=== PATIENT | male | born 1980 | race Asian ===

== ENCOUNTER 2016-04-15 10:11 | Emergency (ER) | payer BC ==
[~2016-04-15] VITALS: Ht 167.6 cm; Wt 80.7 kg
[2016-04-15] MEDS ORDERED: METOCLOPRAMIDE HCL 10 MG/2 ML VIAL IV ONE (10:30)
[2016-04-15] MEDS ORDERED: IV NS 0.9% 1,000 ML BAG IV ONE (10:30)
[2016-04-15] MEDS ORDERED: MECLIZINE HCL 12.5 MG TABLET PO ONE (10:30)
[2016-04-15] MEDS ORDERED: IV SET PRIMARY 1 EA INFUS.SET MC ONE (10:36)
[2016-04-15] MEDS ORDERED: METOCLOPRAMIDE HCL 10 MG/2 ML VIAL ONE (10:36)
[2016-04-15] MEDS ORDERED: MECLIZINE HCL 25 MG TABLET ONE (10:36)
[2016-04-15] MEDS ORDERED: IV NS 0.9% 1,000 ML ONE (10:36)
[2016-04-15 10:56] LABS: BASOPHILS % (AUTO) 0.2 % (0.0-2.0); DIFF TOTAL % 100 %; EOSINOPHILS # (AUTO) 0.1 /CMM (0.0-0.7); EOSINOPHILS % (AUTO) 0.8 % (0.0-6.0); HEMATOCRIT 47 % (39-51); LYMPHOCYTES # (AUTO) 0.6 /CMM (0.8-4.8); LYMPHOCYTES % (AUTO) 6.6 % (20.0-44.0); MEAN CORPUSCULAR HEMOGLOBIN 29 PG (26.0-33.0); MEAN CORPUSCULAR HGB CONC 34 g/dl (31.0-36.0); MEAN CORPUSCULAR VOLUME 85 fL (80-96); MONOCYTES # (AUTO) 0.7 /CMM (0.1-1.30); MONOCYTES % (AUTO) 7.4 % (2.0-12.0); NEUTROPHILS # (AUTO) 7.7 /CMM (1.8-8.9); PLATELET COUNT (AUTO) 233 /CMM (150-450); RED BLOOD CELL COUNT(AUTO) 5.59 MIL/uL (4.5-6.0)
[2016-04-15 11:05] LABS: CALCIUM, SERUM 8.9 mg/dL (8.5-10.1); CREATININE 1.1 mg/dL (0.6-1.3); POTASSIUM 3.5 mmol/L (3.5-5.1)
[2016-04-15 12:27] VITALS: BP 125/82
== END 2016-04-15 12:28 | disposition home or self-care (01) ==
LOC: ER 10:18
DX: R42 Dizziness and giddiness (principal); R11.2 Nausea with vomiting, unspecified; R51 Headache
CPT/HCPCS: 36415; 80048; 85025; 96361; 96374; 99284; A4606; J2765; J7030; J8597; Z7610

== ENCOUNTER 2016-05-13 08:17 | Outpatient (CLI) | payer BC, OTHER ==
[2016-05-13 08:48] LABS: BASOPHILS % (AUTO) 0.6 % (0.0-2.0); DIFF TOTAL % 100 %; EOSINOPHILS # (AUTO) 0.1 /CMM (0.0-0.7); EOSINOPHILS % (AUTO) 1.2 % (0.0-6.0); HEMATOCRIT 50 % (39-51); HEMOGLOBIN 16.9 g/dL (13.5-17.5); LYMPHOCYTES # (AUTO) 2.2 /CMM (0.8-4.8); LYMPHOCYTES % (AUTO) 26.4 % (20.0-44.0); MEAN CORPUSCULAR HEMOGLOBIN 29 PG (26.0-33.0); MEAN CORPUSCULAR HGB CONC 34 g/dl (31.0-36.0); MEAN CORPUSCULAR VOLUME 85 fL (80-96); MONOCYTES # (AUTO) 0.5 /CMM (0.1-1.30); NEUTROPHILS # (AUTO) 5.4 /CMM (1.8-8.9); NEUTROPHILS % (AUTO) 65.8 % (43.0-81.0); PLATELET COUNT (AUTO) 277 /CMM (150-450); WHITE BLOOD COUNT (AUTO) 8.3 K/uL (4.3-11.0)
[2016-05-13 08:52] LABS: KETONES,URINE NEGATIVE (NEGATIVE); LEUKOCYTE ESTERASE ,URINE NEGATIVE (NEGATIVE); PH,URINE 7.5 (5.0-8.0)
[2016-05-13 09:26] LABS: ADD UA MICROSCOPIC YES
[2016-05-13 09:36] LABS: ADD URINE CULTURE NO; RBC,URINE 0-2 /HPF (0-2); WBC,URINE 0-2 /HPF (0-3)
[2016-05-13 10:51] LABS: CALCIUM, SERUM 9.4 mg/dL (8.5-10.1); POTASSIUM 3.6 mmol/L (3.5-5.1)
[2016-05-13 10:52] LABS: ALBUMIN 4.5 g/dL (3.4-5.0); BILIRUBIN,TOTAL 0.7 mg/dL (0.2-1.0); URIC ACID 6.8 mg/dL (2.6-7.2)
[2016-05-13 10:53] LABS: TOTAL PROTEIN, SERUM 8.3 g/dL (6.4-8.2)
[2016-05-13 10:54] LABS: THYROID STIMULATING HORMONE 1.175 uIU/mL (0.358-3.74)
== END 2016-05-13 23:59 | disposition home or self-care (01) ==
LOC: LAB 08:17
PROVIDERS: ATTEND Legal Medicine
DX: Z00.00 Encounter for general adult medical examination without abnormal findings (principal)
CPT/HCPCS: 36415; 80053-TC; 80061-TC; 81000-TC; 84443-TC; 84550-TC; 85025-TC

== ENCOUNTER 2016-05-15 14:41 | Outpatient (CLI) | payer BC, OTHER | END 2016-05-15 23:59 | disposition home or self-care (01) | LOC: RAD 14:41 | PROVIDERS: ATTEND Nurse Practitioner Acute Care | DX: S82.002A Unspecified fracture of left patella, initial encounter for closed fracture (principal); X58.XXXA Exposure to other specified factors, initial encounter; Y93.89 Activity, other specified; Y92.89 Other specified places as the place of occurrence of the external cause; Y99.8 Other external cause status | CPT/HCPCS: 73564-TC ==

== ENCOUNTER 2016-05-22 08:12 | Outpatient (CLI) | payer BC, OTHER | END 2016-05-22 23:59 | disposition home or self-care (01) | LOC: MRI 08:12 | PROVIDERS: ATTEND Legal Medicine | DX: S69.82XA Other specified injuries of left wrist, hand and finger(s), initial encounter (principal); X58.XXXA Exposure to other specified factors, initial encounter; Y93.89 Activity, other specified; Y92.89 Other specified places as the place of occurrence of the external cause; Y99.8 Other external cause status | CPT/HCPCS: 73221 ==

== ENCOUNTER 2016-06-24 09:54 | Outpatient (CLI) | payer BC, OTHER ==
[2016-06-24 10:59] LABS: BASOPHILS # (AUTO) 0.1 /CMM (0.0-0.2); BASOPHILS % (AUTO) 0.6 % (0.0-2.0); DIFF TOTAL % 100 %; EOSINOPHILS # (AUTO) 0.2 /CMM (0.0-0.7); EOSINOPHILS % (AUTO) 1.9 % (0.0-6.0); HEMATOCRIT 48 % (39-51); HEMOGLOBIN 16.1 g/dL (13.5-17.5); LYMPHOCYTES # (AUTO) 2.3 /CMM (0.8-4.8); MEAN CORPUSCULAR HEMOGLOBIN 29 PG (26.0-33.0); MEAN CORPUSCULAR HGB CONC 34 g/dl (31.0-36.0); MEAN CORPUSCULAR VOLUME 84 fL (80-96); MONOCYTES # (AUTO) 0.5 /CMM (0.1-1.30); MONOCYTES % (AUTO) 5.8 % (2.0-12.0); NEUTROPHILS # (AUTO) 5.1 /CMM (1.8-8.9); NEUTROPHILS % (AUTO) 62.7 % (43.0-81.0); PLATELET COUNT (AUTO) 316 /CMM (150-450); RED BLOOD CELL COUNT(AUTO) 5.66 MIL/uL (4.5-6.0); WHITE BLOOD COUNT (AUTO) 8.1 K/uL (4.3-11.0)
[2016-06-24 11:16] LABS: ALBUMIN 4.2 g/dL (3.4-5.0); BILIRUBIN,TOTAL 0.7 mg/dL (0.2-1.0); CALCIUM, SERUM 9.7 mg/dL (8.5-10.1); CREATININE 1.1 mg/dL (0.6-1.3); TOTAL PROTEIN, SERUM 8.1 g/dL (6.4-8.2)
[2016-06-24 11:47] LABS: ADD UA MICROSCOPIC NO; KETONES,URINE NEGATIVE (NEGATIVE); LEUKOCYTE ESTERASE ,URINE NEGATIVE (NEGATIVE)
[2016-06-24 11:52] LABS: INR 0.94 (0.87-1.13); PROTHROMBIN TIME 10.1 SECS (9.5-12.7)
== END 2016-06-24 23:59 | disposition home or self-care (01) ==
LOC: LAB 09:54
PROVIDERS: ATTEND Legal Medicine
DX: Z01.818 Encounter for other preprocedural examination (principal); I10 Essential (primary) hypertension; N39.0 Urinary tract infection, site not specified; R53.1 Weakness; D68.59 Other primary thrombophilia; D64.9 Anemia, unspecified
CPT/HCPCS: 36415; 71020-TC; 80053-TC; 81000-TC; 85025-TC; 85730-TC

== ENCOUNTER 2016-07-01 05:06 | Inpatient (IN) | payer BC, OTHER ==
[2016-07-01] MEDS ORDERED: IV LR 1000 ML 1,000 ML ONE (05:19)
[2016-07-01] MEDS ORDERED: CEFAZOLIN SODIUM/DEXTROSE,ISO 50 ML IV ONE (05:20)
[2016-07-01] MEDS ORDERED: NEEDLELESS EST SET LARGE BORE 1 EA INFUS.SET MC ONE (05:20)
[2016-07-01] MEDS ORDERED: IV SET PRIMARY 1 EA INFUS.SET MC ONE (05:20)
[2016-07-01] MEDS ORDERED: SECONDARY IV SET 1 EA INFUS.SET MC ONE (05:20)
[2016-07-01] MEDS ORDERED: LIDOCAINE HCL/PF 1% 30 ML SDV ONE (06:21)
[2016-07-01] MEDS ORDERED: BUPIVACAINE MPF 0.5% W/EPI INJ 30 ML VIAL ONE (06:21)
[2016-07-01] MEDS ORDERED: EPINEPHRINE (1:1000) MDV 30 MG/30ML VIAL ONE (06:21)
[2016-07-01] MEDS ORDERED: HYDROMORPHONE INJ 2 MG/ML DISP.SYRIN ONE (07:44)
--- NOTE | 2016-07-01 08:30 | NUR ---
DAY SURGERY PT RECEIVED AFTER REPORT RECEIVED FROM LYDIA CARROLL. PATIENT ORIENTED TO PRIMARY RN, UNIT, ROOM, BED, AND UNIT POLICIES REGARDING PATIENT CARE AND VISITING HOURS. PATIENT ENCOURAGED TO CALL IF HE NEEDS ANYTHING. ALL QUESTIONS AND CONCERNS ADDRESSED. PATIENT VERBALIZED UNDERSTANDING.
[2016-07-01] MEDS ORDERED: HYDROCODONE/APAP 5/325MG 1 EACH TABLET PO PRN ×2 (10:00)
[2016-07-01] MEDS ORDERED: TRAM50TA2 PO (10:13)
[2016-07-01] MEDS ORDERED: IBUP-1955 PO (10:13)
--- NOTE | 2016-07-01 14:00 | NUR ---
DISCHARGE INSTRUCTIONS GIVEN ORDERED. ENCOURAGED TO FOLLOW UP WITH PMD AND SURGEON INSTRUCTED. ALL QUESTIONS AND CONCERNS ADDRESSED. PATIENT VERBALIZED UNDERSTANDING. IV REMOVED WITH CATHETER INTACT, PRESSURE DRESSING APPLIED. PATIENT STATED FRIEND IS PICKING HIM UP. NO DISTRESS NOTED AT TIME OF DEPARTURE.
== END 2016-07-01 14:10 | disposition home or self-care (01) | DRG 983 ==
LOC: DS 05:06 → MED 08:44
PROVIDERS: ADMIT Specialist; ATTEND Internal Medicine
PROC: 0XQH0ZZ Repair Left Wrist Region, Open Approach (ICD-10-PCS; principal; 2016-07-01 07:00)
DX: S63.592A Other specified sprain of left wrist, initial encounter (principal); X58.XXXA Exposure to other specified factors, initial encounter; Y93.9 Activity, unspecified; Y92.009 Unspecified place in unspecified non-institutional (private) residence as the place of occurrence of the external cause; Y99.9 Unspecified external cause status
CPT/HCPCS: 88305-TC; 88311-TC; A4217; A6253; J0171; J0690; J1100; J1170; J2001; J2405; J2704; J3490; J7120

== ENCOUNTER 2016-08-04 15:14 | Outpatient (CLI) | payer BC, OTHER ==
[~2016-08-04 15:14] MED LIST: IBUP-1955 PO; TRAM50TA2 PO
== END 2016-08-04 23:59 | disposition home or self-care (01) ==
LOC: RAD 15:14
PROVIDERS: ATTEND Specialist
DX: M25.532 Pain in left wrist (principal)
CPT/HCPCS: 73100-TC

== ENCOUNTER 2016-10-18 13:21 | Emergency (ER) | payer BC, OTHER ==
[~2016-10-18] VITALS: Ht 167.6 cm; Wt 77.1 kg
[2016-10-18 13:27] VITALS: BP 146/84
== END 2016-10-18 14:42 | disposition home or self-care (01) ==
LOC: ER 13:24
DX: S63.501A Unspecified sprain of right wrist, initial encounter (principal); S43.401A Unspecified sprain of right shoulder joint, initial encounter; S40.211A Abrasion of right shoulder, initial encounter; I10 Essential (primary) hypertension; V19.3XXA Pedal cyclist (driver) (passenger) injured in unspecified nontraffic accident, initial encounter; Y93.55 Activity, bike riding; Y92.89 Other specified places as the place of occurrence of the external cause; Y99.8 Other external cause status
CPT/HCPCS: 73030; 73110; 99284; A4606; Z7610

== ENCOUNTER 2016-12-04 12:15 | Outpatient (CLI) | payer BC, OTHER | END 2016-12-04 23:59 | disposition home or self-care (01) | LOC: US 12:15 | PROVIDERS: ATTEND Legal Medicine | DX: D17.1 Benign lipomatous neoplasm of skin and subcutaneous tissue of trunk (principal) ==

== ENCOUNTER 2017-06-22 12:40 | Outpatient (CLI) | payer BC | END 2017-06-22 23:59 | disposition home or self-care (01) | LOC: RAD 12:40 | PROVIDERS: ATTEND Legal Medicine | DX: M21.932 Unspecified acquired deformity of left forearm (principal) | CPT/HCPCS: 73110 ==

== ENCOUNTER 2017-06-30 10:28 | Outpatient (CLI) | payer BC | END 2017-06-30 23:59 | disposition home or self-care (01) | LOC: MRI 10:28 | PROVIDERS: ATTEND Specialist | DX: S63.591A Other specified sprain of right wrist, initial encounter (principal); G93.0 Cerebral cysts; X58.XXXA Exposure to other specified factors, initial encounter; Y93.89 Activity, other specified; Y92.89 Other specified places as the place of occurrence of the external cause; Y99.8 Other external cause status | CPT/HCPCS: 73221 ==

== ENCOUNTER 2017-11-16 08:57 | Outpatient (CLI) | payer BC ==
[2017-11-16 09:52] LABS: APPEARANCE,URINE SL CLOUDY (CLEAR); BILIRUBIN,URINE NEGATIVE (NEGATIVE); BLOOD, URINE NEGATIVE Ery/uL (NEGATIVE); COLOR,URINE YELLOW (YELLOW); KETONES,URINE NEGATIVE (NEGATIVE); LEUKOCYTE ESTERASE ,URINE NEGATIVE (NEGATIVE); NITRITE, URINE NEGATIVE (NEGATIVE); PH,URINE 6.5 (5.0-8.0); PROTEIN,URINE NEGATIVE (NEGATIVE); UGLUCOSE NEGATIVE (NEGATIVE); UROBILINOGEN,URINE 0.2 EU/dL (0.2)
[2017-11-16 09:53] LABS: BASOPHILS # (AUTO) 0.1 /CMM (0.0-0.2); BASOPHILS % (AUTO) 0.8 % (0.0-2.0); EOSINOPHILS % (AUTO) 1.7 % (0.0-6.0); HEMATOCRIT 47 % (39-51); HEMOGLOBIN 15.6 g/dL (13.5-17.5); LYMPHOCYTES # (AUTO) 2.2 /CMM (0.8-4.8); LYMPHOCYTES % (AUTO) 30.3 % (20.0-44.0); MEAN CORPUSCULAR HEMOGLOBIN 29 PG (26.0-33.0); MEAN CORPUSCULAR HGB CONC 33 g/dl (31.0-36.0); MEAN CORPUSCULAR VOLUME 88 fL (80-96); MONOCYTES # (AUTO) 0.5 /CMM (0.1-1.30); MONOCYTES % (AUTO) 6.2 % (2.0-12.0); NEUTROPHILS # (AUTO) 4.5 /CMM (1.8-8.9); PLATELET COUNT (AUTO) 259 /CMM (150-450); RDW COEFFICIENT OF VARIATION 12.6 (11.5-15.0); RED BLOOD CELL COUNT(AUTO) 5.35 MIL/uL (4.5-6.0); WHITE BLOOD COUNT (AUTO) 7.3 K/uL (4.3-11.0)
[2017-11-16 09:58] LABS: BILIRUBIN,TOTAL 0.4 mg/dL (0.2-1.0); CALCIUM, SERUM 8.7 mg/dL (8.5-10.1); CREATININE 1.1 mg/dL (0.6-1.3); POTASSIUM 3.6 mmol/L (3.5-5.1); TOTAL PROTEIN, SERUM 7.5 g/dL (6.4-8.2)
[2017-11-16 10:09] LABS: THYROID STIMULATING HORMONE 1.608 uIU/mL (0.358-3.74); URIC ACID 6.4 mg/dL (2.6-7.2)
== END 2017-11-16 23:59 | disposition home or self-care (01) ==
LOC: LAB 08:57
PROVIDERS: ATTEND Legal Medicine
DX: Z00.00 Encounter for general adult medical examination without abnormal findings (principal); I10 Essential (primary) hypertension
CPT/HCPCS: 36415; 80053-TC; 80061-TC; 81000-TC; 82306; 82728-TC; 82746; 83540-TC; 84439-TC; 84443-TC; 84550-TC; 85025-TC

== ENCOUNTER 2018-01-27 12:33 | Outpatient (CLI) | payer BC | END 2018-01-27 23:59 | disposition home or self-care (01) | LOC: RAD 12:33 | PROVIDERS: ATTEND Legal Medicine | DX: M25.531 Pain in right wrist (principal); M79.641 Pain in right hand | CPT/HCPCS: 73110; 73130-TC ==

== ENCOUNTER 2018-03-10 08:51 | Outpatient (CLI) | payer BC ==
[2018-03-10 11:42] LABS: BASOPHILS # (AUTO) 0.1 /CMM (0.0-0.2); EOSINOPHILS % (AUTO) 1.1 % (0.0-6.0); HEMATOCRIT 49 % (39-51); HEMOGLOBIN 16.5 g/dL (13.5-17.5); LYMPHOCYTES % (AUTO) 28.6 % (20.0-44.0); MEAN CORPUSCULAR HGB CONC 34 g/dl (31.0-36.0); MEAN CORPUSCULAR VOLUME 86 fL (80-96); MONOCYTES # (AUTO) 0.4 /CMM (0.1-1.30); MONOCYTES % (AUTO) 5.5 % (2.0-12.0); NEUTROPHILS # (AUTO) 4.4 /CMM (1.8-8.9); NEUTROPHILS % (AUTO) 63.8 % (43.0-81.0); PLATELET COUNT (AUTO) 269 /CMM (150-450); RED BLOOD CELL COUNT(AUTO) 5.65 MIL/uL (4.5-6.0); WHITE BLOOD COUNT (AUTO) 6.9 K/uL (4.3-11.0)
[2018-03-10 11:43] LABS: APPEARANCE,URINE CLEAR (CLEAR); BILIRUBIN,URINE NEGATIVE (NEGATIVE); BLOOD, URINE NEGATIVE Ery/uL (NEGATIVE); COLOR,URINE YELLOW (YELLOW); KETONES,URINE NEGATIVE (NEGATIVE); LEUKOCYTE ESTERASE ,URINE NEGATIVE (NEGATIVE); NITRITE, URINE NEGATIVE (NEGATIVE); PH,URINE 7.5 (5.0-8.0); PROTEIN,URINE NEGATIVE (NEGATIVE); UGLUCOSE NEGATIVE (NEGATIVE); UROBILINOGEN,URINE 0.2 EU/dL (0.2)
[2018-03-10 11:53] LABS: BILIRUBIN,TOTAL 0.5 mg/dL (0.2-1.0); CALCIUM, SERUM 8.7 mg/dL (8.5-10.1); POTASSIUM 3.4 mmol/L (3.5-5.1); TOTAL PROTEIN, SERUM 7.6 g/dL (6.4-8.2)
[2018-03-10 12:06] LABS: FREE T4 (FREE THYROXINE) 1.16 ng/dL (0.76-1.46); PROSTATE SPECIFIC ANTIGEN SCR 0.97 ng/mL (0.00-4.00); THYROID STIMULATING HORMONE 1.198 uIU/mL (0.358-3.74)
== END 2018-03-10 23:59 | disposition home or self-care (01) ==
LOC: LAB 08:51
PROVIDERS: ATTEND Legal Medicine
DX: Z00.00 Encounter for general adult medical examination without abnormal findings (principal); R10.9 Unspecified abdominal pain; I10 Essential (primary) hypertension
CPT/HCPCS: 36415; 76770-TC; 80053-TC; 80061-TC; 81000-TC; 84153-TC; 84402; 84403; 84439-TC; 84443-TC; 85025-TC; 87086-TC

== ENCOUNTER 2018-03-31 08:57 | Outpatient (CLI) | payer BC | END 2018-03-31 23:59 | disposition home or self-care (01) | LOC: MRI 08:57 | PROVIDERS: ATTEND Legal Medicine | DX: M19.031 Primary osteoarthritis, right wrist (principal); M25.831 Other specified joint disorders, right wrist | CPT/HCPCS: 73221-TC ==

== ENCOUNTER 2018-11-02 09:56 | Outpatient (CLI) | payer BC | END 2018-11-02 23:59 | disposition home or self-care (01) | LOC: MRI 09:56 | PROVIDERS: ATTEND Legal Medicine | DX: M19.071 Primary osteoarthritis, right ankle and foot (principal); M22.42 Chondromalacia patellae, left knee; M22.41 Chondromalacia patellae, right knee; M77.51 Other enthesopathy of right foot and ankle; M25.862 Other specified joint disorders, left knee; M25.861 Other specified joint disorders, right knee | CPT/HCPCS: 73721-TC ==

== ENCOUNTER 2019-12-11 11:11 | Outpatient (CLI) | payer BC | END 2019-12-11 23:59 | disposition home or self-care (01) | LOC: MRI 11:11 | PROVIDERS: ATTEND Legal Medicine | DX: M17.12 Unilateral primary osteoarthritis, left knee (principal); M67.462 Ganglion, left knee; M25.561 Pain in right knee | CPT/HCPCS: 73721-TC ==

== ENCOUNTER 2020-03-28 09:26 | Emergency (ER) | payer BC, OTHER ==
[~2020-03-28] VITALS: Ht 170.2 cm; Wt 78.9 kg
[2020-03-28 09:59] VITALS: BP 142/82
== END 2020-03-28 10:46 | disposition home or self-care (01) ==
LOC: ER 09:32
DX: U07.1 COVID-19 (principal); R09.89 Other specified symptoms and signs involving the circulatory and respiratory systems; I10 Essential (primary) hypertension
CPT/HCPCS: 99283; C9803; U0003

== ENCOUNTER 2020-06-19 11:06 | Outpatient (CLI) | payer BC ==
[2020-06-19 12:34] LABS: BASOPHILS % (AUTO) 0.4 % (0.0-2.0); BILIRUBIN,URINE NEGATIVE (NEGATIVE); EOSINOPHILS % (AUTO) 0.9 % (0.0-6.0); HEMATOCRIT 49 % (39-51); HEMOGLOBIN 16.7 g/dL (13.5-17.5); LEUKOCYTE ESTERASE ,URINE NEGATIVE (NEGATIVE); LYMPHOCYTES # (AUTO) 2.2 /CMM (0.8-4.8); LYMPHOCYTES % (AUTO) 25.1 % (20.0-44.0); MEAN CORPUSCULAR HGB CONC 34 g/dl (31.0-36.0); MEAN CORPUSCULAR VOLUME 86 fL (80-96); MONOCYTES # (AUTO) 0.5 /CMM (0.1-1.30); MONOCYTES % (AUTO) 5.9 % (2.0-12.0); NEUTROPHILS % (AUTO) 67.7 % (43.0-81.0); NITRITE, URINE NEGATIVE (NEGATIVE); PH,URINE 5.5 (5.0-8.0); PLATELET COUNT (AUTO) 281 /CMM (150-450); PROTEIN,URINE NEGATIVE (NEGATIVE); RED BLOOD CELL COUNT(AUTO) 5.69 MIL/uL (4.5-6.0); UGLUCOSE NEGATIVE (NEGATIVE); UROBILINOGEN,URINE 0.2 EU/dL (0.2); WHITE BLOOD COUNT (AUTO) 8.9 K/uL (4.3-11.0)
[2020-06-19 12:35] LABS: COLOR,URINE STRAW (YELLOW)
[2020-06-19 13:07] LABS: THYROID STIMULATING HORMONE 1.514 uIU/mL (0.358-3.74); URIC ACID 7.1 mg/dL (2.6-7.2)
[2020-06-19 13:22] LABS: ALBUMIN 4.1 g/dL (3.4-5.0); BILIRUBIN,TOTAL 0.7 mg/dL (0.2-1.0); POTASSIUM 3.6 mmol/L (3.5-5.1); TOTAL PROTEIN, SERUM 7.8 g/dL (6.4-8.2)
== END 2020-06-19 23:59 | disposition home or self-care (01) ==
LOC: LAB 11:06
PROVIDERS: ATTEND Legal Medicine
DX: I10 Essential (primary) hypertension (principal); E03.9 Hypothyroidism, unspecified; D64.9 Anemia, unspecified; Z00.00 Encounter for general adult medical examination without abnormal findings
CPT/HCPCS: 36415; 80053-TC; 80061-TC; 82306; 82607-TC; 82626; 82728-TC; 83540-TC; 84403; 84443-TC; 84550-TC; 85025-TC

== ENCOUNTER 2020-07-04 14:01 | Outpatient (CLI) | payer BC | END 2020-07-04 23:59 | disposition home or self-care (01) | LOC: RAD 14:01 | PROVIDERS: ATTEND Legal Medicine | DX: M25.532 Pain in left wrist (principal) | CPT/HCPCS: 73110 ==

== ENCOUNTER 2022-08-07 07:44 | Outpatient (CLI) | payer BC ==
[2022-08-07 08:33] LABS: BILIRUBIN,URINE NEGATIVE (NEGATIVE); COLOR,URINE YELLOW (YELLOW); LEUKOCYTE ESTERASE ,URINE NEGATIVE (NEGATIVE); NITRITE, URINE NEGATIVE (NEGATIVE); PROTEIN,URINE NEGATIVE (NEGATIVE); UGLUCOSE NEGATIVE (NEGATIVE); UROBILINOGEN,URINE 0.2 EU/dL (0.2)
[2022-08-07 08:41] LABS: BASOPHILS % (AUTO) 0.5 % (0.0-2.0); EOSINOPHILS % (AUTO) 0.6 % (0.0-6.0); HEMATOCRIT 46 % (39-51); HEMOGLOBIN 15.6 g/dL (13.5-17.5); LYMPHOCYTES % (AUTO) 24.5 % (20.0-44.0); MEAN CORPUSCULAR HGB CONC 34 g/dl (31.0-36.0); MEAN CORPUSCULAR VOLUME 84 fL (80-96); MONOCYTES # (AUTO) 0.5 K/uL (0.1-1.30); MONOCYTES % (AUTO) 5.6 % (2.0-12.0); NEUTROPHILS # (AUTO) 5.5 K/uL (1.8-8.9); NEUTROPHILS % (AUTO) 68.8 % (43.0-81.0); PLATELET COUNT (AUTO) 284 K/uL (150-450); RED BLOOD CELL COUNT(AUTO) 5.49 MIL/uL (4.5-6.0)
[2022-08-07 09:28] LABS: THYROID STIMULATING HORMONE 1.126 uIU/mL (0.358-3.74); URIC ACID 6.8 mg/dL (2.6-7.2)
[2022-08-07 09:40] LABS: ALBUMIN 4.2 g/dL (3.4-5.0); CREATININE 1.1 mg/dL (0.6-1.3); POTASSIUM 3.3 mmol/L (3.5-5.1); TOTAL PROTEIN, SERUM 7.7 g/dL (6.4-8.2)
== END 2022-08-07 23:59 | disposition home or self-care (01) ==
LOC: LAB 07:44
PROVIDERS: ATTEND Legal Medicine
DX: E11.9 Type 2 diabetes mellitus without complications (principal); D64.9 Anemia, unspecified; E03.9 Hypothyroidism, unspecified; E55.9 Vitamin D deficiency, unspecified; Z00.00 Encounter for general adult medical examination without abnormal findings; R53.1 Weakness
CPT/HCPCS: 36415; 80053-TC; 80061-TC; 82306; 82607-TC; 82728-TC; 83540-TC; 84402-TC; 84439-TC; 84443-TC; 84550-TC; 85025-TC

== ENCOUNTER 2024-03-17 08:10 | Outpatient (CLI) | payer BC ==
[2024-03-17 09:00] LABS: APPEARANCE,URINE CLEAR (CLEAR); BILIRUBIN,URINE NEGATIVE (NEGATIVE); BLOOD, URINE NEGATIVE Ery/uL (NEGATIVE); COLOR,URINE YELLOW (YELLOW); KETONES,URINE NEGATIVE (NEGATIVE); LEUKOCYTE ESTERASE ,URINE NEGATIVE (NEGATIVE); NITRITE, URINE NEGATIVE (NEGATIVE); PROTEIN,URINE NEGATIVE (NEGATIVE); UGLUCOSE NEGATIVE (NEGATIVE); UROBILINOGEN,URINE 0.2 EU/dL (0.2)
[2024-03-17 09:10] LABS: BASOPHILS % (AUTO) 0.5 % (0.0-2.0); EOSINOPHILS # (AUTO) 0.1 K/uL (0.0-0.7); EOSINOPHILS % (AUTO) 1.2 % (0.0-6.0); HEMATOCRIT 48 % (39-51); HEMOGLOBIN 16.4 g/dL (13.5-17.5); LYMPHOCYTES # (AUTO) 2.1 K/uL (0.8-4.8); LYMPHOCYTES % (AUTO) 26.4 % (20.0-44.0); MEAN CORPUSCULAR HEMOGLOBIN 29 PG (26.0-33.0); MEAN CORPUSCULAR HGB CONC 35 g/dl (31.0-36.0); MEAN CORPUSCULAR VOLUME 84 fL (80-96); MONOCYTES # (AUTO) 0.5 K/uL (0.1-1.30); MONOCYTES % (AUTO) 5.8 % (2.0-12.0); NEUTROPHILS # (AUTO) 5.3 K/uL (1.8-8.9); NEUTROPHILS % (AUTO) 66.1 % (43.0-81.0); PLATELET COUNT (AUTO) 274 K/uL (150-450); RED BLOOD CELL COUNT(AUTO) 5.68 MIL/uL (4.5-6.0); RED CELL DISTRIBUTION WIDTH 13.2 % (11.5-15.0)
[2024-03-18 00:34] LABS: ALBUMIN 4.2 g/dL (3.4-5.0); BILIRUBIN,TOTAL 0.6 mg/dL (0.2-1.0); CALCIUM, SERUM 9.5 mg/dL (8.5-10.1); CREATININE 1.1 mg/dL (0.6-1.3); POTASSIUM 3.7 mmol/L (3.5-5.1); TOTAL PROTEIN, SERUM 8.2 g/dL (6.4-8.2)
[2024-03-19 14:04] LABS: THYROID STIMULATING HORMONE 1.62 uIU/mL (0.358-3.74); URIC ACID 6.6 mg/dL (2.6-7.2)
[2024-03-21 01:07] LABS: FOLIC ACID 8.8 ng/mL (>3.0)
== END 2024-03-17 23:59 | disposition home or self-care (01) ==
LOC: LAB 08:10
PROVIDERS: ATTEND Legal Medicine
DX: R53.1 Weakness (principal); E11.9 Type 2 diabetes mellitus without complications; E55.9 Vitamin D deficiency, unspecified; I10 Essential (primary) hypertension; E03.9 Hypothyroidism, unspecified; D64.9 Anemia, unspecified
CPT/HCPCS: 36415; 80053-TC; 82306; 82607-TC; 82728-TC; 83540-TC; 84402-TC; 84439-TC; 84443-TC; 84550-TC; 85025-TC

== ENCOUNTER 2024-05-16 06:27 | Day surgery (SDC) | payer BC ==
[2024-05-16] MEDS ORDERED: LIDOCAINE 2%-EPI 1:100,000 30 ML VIAL ONE (07:08)
[2024-05-16] MEDS ORDERED: SODIUM BICARBONATE 5 ML VIAL ONE (07:09)
== END 2024-05-16 09:30 | disposition home or self-care (01) ==
LOC: DS 06:27
PROVIDERS: ATTEND Student in an Organized Health Care Education/Training Program
DX: R22.0 Localized swelling, mass and lump, head (principal); D23.39 Other benign neoplasm of skin of other parts of face; K21.9 Gastro-esophageal reflux disease without esophagitis; E66.3 Overweight; Z68.27 Body mass index [BMI] 27.0-27.9, adult; Z79.899 Other long term (current) drug therapy; Z83.3 Family history of diabetes mellitus
CPT/HCPCS: 21011; J3490; 88305-TC; 88341; 88342